=== PATIENT | female | born 1995 | race Hispanic/Latino ===

== ENCOUNTER → 2024-05-07 | Emergency (ER) | payer MEDICAID, OTHER ==
[~2024-05-07] VITALS: Ht 172.7 cm; Wt 2.5 kg
[~2024-05-07] MED LIST: acetaMINOPHEN 325 MG TAB PO ONE
--- NOTE | 2024-05-07 02:46 | ERN ---
General Chief Complaint: Back Pain-No Injury Stated Complaint: C/O UPPER BACK PAIN TO LEFT SIDE Time Seen by MD: 02:33 Source: patient History of Present Illness Initial Comments 29-year-old female no past medical history woke up with back pain that is positional and located in her left upper back radiating to her left shoulder. She has no other associated symptoms no blood in her urine no upper respiratory tract infections no chest pain no shortness of breath. She does not remember straining it or over working it. Timing/Duration: 1-3 hours, 4-6 hours Allergies: Coded Allergies: No Known Allergies (Unverified Allergy, Unknown, 05/07/24) Past Medical History Past Medical History: No Pertinent History Past Surgical History: None Female( History) LMP: Mar 21, 2024 ROS Dictation Review of systems is negative no mental status changes no visual changes no shortness of breath no chest pain no GI symptoms no cramping normal bowel movements normal urination moves all extremities. Physical Exam General Appearance: (+) mild distress Eye: bilateral eye normal inspection, bilateral eye PERRL, bilateral eye EOMI Ear, Nose, Throat: (+) hearing grossly normal, (+) normal ENT inspection, (+) moist mucous membraine Neck: (+) normal inspection, (+) supple, (+) full range of motion, (+) no JVD Respiratory: (+) chest non-tender, (+) lungs clear, (+) well ventilated Heart: (+) regular, (+) no gallop Vascular: (+) no edema, (+) normal peripheral pulse Gastrointestinal: (+) soft, (+) non-tender, (+) no organomegaly, (+) bowel sound present Back Comment Patient has back tenderness and it seems to be musculoskeletal along the trapezius although she can not be sure if it is on the surface or on the inside. Did not feel any muscle bumps spasms or displaced ribs. Palpating the supra and infraspinatus did not elicit any pain. Results Laboratory and Microbiology Lab and Micro Result Laboratory Tests Test 05/07/24 03:31 Urine Color ORANGE (YELLOW) Urine Appearance TURBID (CLEAR) Urine pH 5.5 (5.0-8.0) Urine Specific [place] 1.027 (1.001-1.031) Urine Protein 10 mg/dL (NEGATIVE) H Urine Glucose (UA) NEGATIVE mg/dL (NEGATIVE) Urine Ketones NEGATIVE mg/dL (NEGATIVE) Urine Occult Blood NEGATIVE (NEGATIVE) Urine Nitrate NEGATIVE (NEGATIVE) Urine Bilirubin NEGATIVE mg/dL (NEGATIVE) Urine Urobilinogen 2.0 mg/dL (0.2-1.0) H Urine Leukocyte Esterase 25 Karen/uL (NEGATIVE) H Urine RBC None /HPF (0-1) Urine WBC 2-5 /HPF (0-1) H Urine Squamous Epithelial Cells RARE /HPF (0-2) Urine Amorphous Crystals (Auto) MOD /LPF (None Seen) Urine Bacteria FEW /HPF (None Seen) Urine HCG, Qualitative NEGATIVE (NEGATIVE) MDM Most likely a muscle sprain I will give her some muscle relaxant. Unfortunately given the location of the pain in the fact that she feels like it is inside I will do a CT to rule out a kidney stone and a UA. ED Course Orders Procedure Category Date Status Time Cyclobenzaprine Hcl PHA 05/07/24 Complete (Cyclobenzaprine Hcl 03:00 Ct Abdomen/Pelvis W/O CT 05/07/24 Taken Contrast 02:46 ,Urine Test LAB 05/07/24 Complete 03:01 Ketorolac PHA 05/07/24 Complete Tromethamine 15mg/Ml 04:30 Acetaminophen 325 Tab PHA 05/07/24 Complete (Tylenol 325mg Tab 05:00 Urinalysis Profile LAB 05/07/24 Complete 04:55 Current Medications Medications (Trade) Dose Ordered Sig/[place] Route PRN Reason Start Time Stop Time Status Last Admin Dose Admin Acetaminophen (TYLenol 325MG TAB) 650 mg ONCE ONCE PO 05/07/24 05:00 05/07/24 05:02 DC Cyclobenzaprine HCl (Cyclobenzaprine HCl) 10 mg ONCE ONCE PO 05/07/24 03:00 05/07/24 03:01 DC 05/07/24 03:31 Ketorolac Tromethamine (toRADol) 15 mg ONCE ONCE IV 05/07/24 04:30 05/07/24 04:31 DC 05/07/24 04:50 Vital Signs Date Time Temp Pulse Resp B/P (MAP) Pulse Ox O2 Delivery O2 Flow Rate FiO2 05/07/24 03:32 98.6 72 18 124/84 98 Room Air* 0 21 05/07/24 02:29 99.7 110 20 149/92 99 Room Air DX & DISP Disposition: Discharge Departure Impression: Primary Impression: Back sprain Condition: Stable Referrals: SELF,REFERRAL (PCP) LIAN MORFIN MD May 07, 2024 02:46
[2024-05-07] MEDS: CYCLOBENZAPRINE HCL 10 MG TABLET PO ONE (03:31)
[2024-05-07] MEDS: ketOROlac 15MG/ML VIAL (15MG/ML) IV ONE (04:50)
[2024-05-07 05:04] LABS: APPEARANCE,URINE TURBID (CLEAR); BILIRUBIN,URINE NEGATIVE (NEGATIVE); COLOR,URINE ORANGE (YELLOW); GLUCOSE, URINE (UA) NEGATIVE (NEGATIVE); KETONES,URINE NEGATIVE (NEGATIVE); LEUKOCYTE ESTERASE ,URINE 25 Leu/uL (NEGATIVE); NITRATE,URINE NEGATIVE (NEGATIVE); OCCULT BLOOD,URINE NEGATIVE (NEGATIVE); PH,URINE 5.5 (5.0-8.0); PROTEIN,URINE 10 mg/dL (NEGATIVE)
[2024-05-07 05:10] LABS: ADD UA MICROSCOPIC YES
[2024-05-07 05:13] LABS: BACTERIA,URINE FEW /HPF (None Seen); MUCUS,URINE FEW LPF (None Seen); SQUAMOUS EPITHELIAL CELL,UR RARE /HPF (0-2)
[2024-05-07 06:39] VITALS: BP 128/74; PULSE 78; RESP 18; TEMP 98.4; O2SAT 98
--- NOTE | 2024-05-07 09:00 | HMCIMG ---
CT ABDOMEN/PELVIS W/O CONTRAST HISTORY: Renal stone COMPARISON: None TECHNIQUE: Multiple sequential axial images of the abdomen and pelvis were obtained from the dome of the diaphragm through symphysis pubis. Patient was not given contrast through intravenous route. Oral contrast was not given. FINDINGS: No pleural effusion is seen bilaterally. There is no evidence of parenchymal disease or pulmonary nodule of the visualized lower lungs. Degenerative changes of the thoracolumbar spine are present. The heart is not enlarged. Liver is enlarged with fatty changes measuring 25 cm. The liver, spleen, adrenal glands and pancreas are unremarkable. There is no evidence of hydronephrosis bilaterally. No evidence of renal stone is seen. Fecal material is seen in the colon. There are normal size retroperitoneal and mesenteric lymph nodes. No ascites is seen. There is fat-containing left adnexal mass measuring 4.2 x 3.4 cm most consistent with dermoid cyst versus teratoma. No CT evidence of acute appendicitis is seen. Clinical correlation is recommended. Pelvic sidewalls are symmetric bilaterally. Bladder is poorly distended. IMPRESSION: 1. No hydronephrosis is seen. There is fat-containing left adnexal mass measuring 4.2 x 3.4 cm most consistent with dermoid cyst versus teratoma. CT was performed with one or more following dose reduction techniques: automated exposure control, adjustment of the mA and kv according to patient's size, or use of a iterative reconstruction technique.
== END ==
LOC: EDH 02:27
DX: S23.3XXA Sprain of ligaments of thoracic spine, initial encounter (principal); R19.09 Other intra-abdominal and pelvic swelling, mass and lump; M54.89 Other dorsalgia; X58.XXXA Exposure to other specified factors, initial encounter; Y93.89 Activity, other specified; Y92.89 Other specified places as the place of occurrence of the external cause; Y99.8 Other external cause status
CPT/HCPCS: 99285; 74176; 96374; 81001; 81025; J1885